=== PATIENT | male | born 2000 | race Caucasian/White ===

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

== ENCOUNTER 2018-05-12 20:04 | Emergency (ER) | END 2018-05-12 23:23 | disposition home or self-care (01) ==

== ENCOUNTER 2018-11-24 11:01 | Emergency (ER) | payer OTHER ==
[~2018-11-24] VITALS: Ht 180.3 cm; Wt 74.2 kg
[~2018-11-24 11:01] MED LIST changes: +ACET500C5 PO; -AMO500 PO; +AMOX500C2 PO; +AZIT250T PO; +FIORICET PO; +IBUP-1541 PO; +IBUP-1561 PO; -IBUP400T22 PO
[2018-11-24 11:04] VITALS: BP 150/86; PULSE 103; RESP 18; Ht 180.3 cm; Wt 74.2 kg
[2018-11-24] MEDS ORDERED: ONDANSETRON (ODT) 4 MG TAB ODT STA (11:37)
--- NOTE | 2018-11-24 11:49 | ERD ---
ER Documentation Chief Complaint Chief Complaint nausea x 1 week HPI 18-year-old male presents to the emergency department with complaints of intermittent body aches and nausea which began today. The patient has also had 2 episodes of diarrhea yesterday. Additionally he reports intermittent testicular pain for the past 3 days. He describes the pain as sharp. He denies any testicular trauma. He states that before his GI symptoms began he ate some "bad food" which he believes made him sick. He denies any fevers, new medications, abdominal pain, or other symptoms at this time. ROS All systems reviewed and are negative except as per history of present illness. Medications Home Meds Active Scripts Bismuth Subsalicylate* (Bismuth Subsalicylate*) 262 Mg/15 Ml Oral.susp, 15 ML PO Q6 PRN for diarr, #1 BOTTLE Prov:MAURY HAWKINS PA-C 11/24/18 Ondansetron (Ondansetron Odt) 4 Mg Tab.rapdis, 4 MG PO Q6H PRN for NAUSEA AND/OR VOMITING, #10 TAB Prov:MAURY HAWKINS PA-C 11/24/18 Acetamin/Butalbital/Caffeine* (Fioricet*) [id number] Tab, 1 TAB PO Q6H PRN for PAIN, #30 TAB Prov:MAYELIN BRUMFIELD PA-C 05/12/18 Acetaminophen* (Tylophen*) 500 Mg Capsule, 1 CAP PO Q6H PRN for PAIN AND OR ELEVATED TEMP, #20 CAP Prov:DESTINEE MITCHELL PA-C 08/02/16 Ibuprofen* (Motrin*) 400 Mg Tab, 400 MG PO Q6, #30 TAB Prov:DESTINEE MITCHELL PA-C 08/02/16 Azithromycin* (Zithromax*) 250 Mg Tablet, 250 MG PO .CINTHIA DIRECTED, #6 TAB TAKE 500 MG (2 TABS) THE FIRST DAY THEN 250 MG (1 TAB) DAYS 2-5 Prov:DESTINEE MTICHELL PA-C 08/02/16 Ibuprofen* (Motrin*) 400 Mg Tab, 400 MG PO Q6H PRN for PAIN AND OR ELEVATED TEMP, #30 TAB Prov:OLIVA HESTER NP 06/16/16 Amoxicillin* (Amoxicillin*) 500 Mg Cap, 500 MG PO TID for 10 Days, CAP Prov:OLIVA HESTER ROHAN Manning NP 06/16/16 Ibuprofen* (Ibuprofen*) 400 Mg Tablet, 400 MG PO Q6H PRN for PAIN, #15 TAB Prov:MIKE BELTRAN PA-C 03/15/16 Allergies Allergies: Coded Allergies: No Known Drug Allergies (Verified Allergy, Mild, 06/16/16) PMhx/Soc History of Surgery: Yes (APPENDECTOMY) Anesthesia Reaction: No Hx Neurological Disorder: No Hx Respiratory Disorders: No Hx Cardiac Disorders: No Hx Psychiatric Problems: No Hx Miscellaneous Medical Probl: No Hx Alcohol Use: No Hx Substance Use: No Hx Tobacco Use: No Smoking Status: Never smoker FmHx Family History: No diabetes Physical Exam Vitals Vital Signs Date Temp Pulse Resp B/P (MAP) Pulse Ox O2 O2 Flow FiO2 Time Delivery Rate 11/24/18 99.5 103 18 150/86 98 11:04 (107) Physical Exam Const: No acute distress Head: Atraumatic Eyes: Normal Conjunctiva ENT: Normal External Ears, Nose and Mouth. Neck: Full range of motion. No meningismus. Resp: Clear to auscultation bilaterally Cardio: Regular rate and rhythm, no murmurs Abd: Soft, non tender, non distended. Normal bowel sounds. No rebound tenderness or guarding. No McBurney's point tenderness. Exam: Scrotum: Normal Hernia: None Testes/Epid: Non-tender w/ normal lie Lymph: No inguinal lymphadenopathy Discharge: None Skin: No petechiae or rashes Back: No midline or flank tenderness Ext: No cyanosis, or edema Neur: Awake and alert Psych: Normal Mood and Affect Results 24 hrs Current Medications Medications Dose Sig/Shaggy Start Time Status Last (Trade) Ordered Route PRN Stop Time Admin Dose Reason Admin Ondansetron 4 mg ONCE STAT 11/24/18 DC 11/24/18 HCl (Zofran ODT 11:37 11:46 Odt) 11/24/18 11:[address] [address] Radiology Main Line: [phone] DIAGNOSTIC IMAGING REPORT Patient: ARIEL BARRAZA : 2000 Age: 18 Sex: M MR #: [id number] DOS: 11/24/18 0000 Ordering MD: MAURY HAWKINS PA-C Location: [facility] Room/Bed: PROCEDURE: Scrotal ultrasound CLINICAL INDICATION: Testicular pain x3 days TECHNIQUE: Scrotal ultrasound was performed with sagittal and transverse views. Gordon scale and color imaging was performed. Images were reviewed on high resolution PACS monitors. COMPARISON: None available FINDINGS: The right testicle measures 4.4 cm in length. There is normal size and echogenicity and morphology of the right testicle with normal blood flow. The right epididymis is normal. The left testicle measures 5.1 cm in length. There is normal size and echogenicity and morphology of the left testicle with normal blood flow. The left epididymis demonstrates a 8 mm cyst. IMPRESSION: 1. No testicular torsion or mass bilaterally. 2. Left epididymis demonstrates an 8 mm cyst. RPTAT: QQ .Parag Qureshi MD, MD Date Time Electronically viewed and signed by .Parag Qureshi MD, MD on 11/24/2018 12:45 .R/ CC: MAURY HAWKINS PA-C [phone] Procedures/MDM 18-year-old male presents to the emergency department complaining of testicular pain and nausea and diarrhea. History and physical examination is most consistent with gastritis, likely viral etiology. Ultrasound of testicles revealed left epididymal cyst. Patient is nontoxic, well-appearing, afebrile. Abdominal examination is not concerning for acute surgical abdomen. Patient's gastrointestinal/genitourinary symptoms have stabilized while in the department. No evidence of testicular torsion, severe dehydration, sepsis, or surgical abdomen. Extensive discussion with family and patient that occult disease cannot be ruled out. 8 hour recheck for repeat abdominal exam is planned. No evidence of life-threatening pathology at time of discharge. Pt/family in a greement with discharge plan/diagnosis. Pt/family advised to return immediately with any new or worsening symptoms. Follow-up with primary care physician within the next 1-2 days. Patient's blood pressure was elevated (>120/80) but appears stable without evidence of hypertension emergency or urgency. The patient is to follow-up and pursue outpatient monitoring and therapy with their primary care physician within 1 week and return immediately if they have any new, worsening, or concerning symptoms. Disclaimer: Inadvertent spelling and grammatical errors are likely due to EHR/dictation software use and do not reflect on the overall quality of patient care. Also, please note that the electronic time recorded on this note does not necessarily reflect the actual time of the patient encounter. Departure Diagnosis: Primary Impression: Mild nausea Additional Impressions: Diarrhea Testicular pain Condition: Fair MAURY HAWKINS PA-C Nov 24, 2018 11:49
[2018-11-24] MEDS ORDERED: ONDA4TAB14 PO (13:00)
[2018-11-24] MEDS ORDERED: BISM-34 PO (13:00)
== END 2018-11-24 13:18 | disposition home or self-care (01) ==
LOC: FTE 11:01
DX: N50.812 Left testicular pain (principal); R19.7 Diarrhea, unspecified
CPT/HCPCS: 76870; Z7502; Z7610